=== PATIENT | male | born 1975 | race Two or more races ===

== ENCOUNTER 2022-09-23 14:27 | Inpatient (IN) | payer MEDICAID, OTHER ==
[~2022-09-23] VITALS: Ht 172.7 cm; Wt 80.0 kg
[2022-09-23] MEDS ORDERED: MORPHINE SULFATE 4 MG/ML SYR/VIAL IV ONE (15:45)
[2022-09-23] MEDS ORDERED: METOCLOPRAMIDE HCL 5MG/ml INJ 2ml VIAL IV ONE (15:45)
[2022-09-23] MEDS ORDERED: SODIUM CHLORIDE 0.9% 1,000 ML IV ONE (15:45)
[2022-09-23] MEDS ORDERED: SODIUM CHLORIDE 0.9% 500 ML IVB ONE (15:45)
[2022-09-23] MEDS ORDERED: VANCOMYCIN 1GM/250ML 250 ML IV ONE (15:45)
[2022-09-23 16:13] LABS: Basophils # (auto) 0.1 10 ^3/uL (0-0.2); Eosinophils # (auto) 0 10 ^3/uL (0-0.8); Hemoglobin 8.2 g/dL (13.5-17.5); Lymphocytes # (auto) 0.4 10 ^3/uL (0.4-5.4); Mean Corpuscular Volume 80.9 fL (80.0-100.0); Monocytes # (auto) 0.8 10 ^3/uL (0-1.3)
[2022-09-23 16:14] LABS: Basophils % (auto) 0.5 % (0.0-2.0); Eosinophils % (auto) 0.2 % (0.0-7.0); Hematocrit 25.1 % (41.0-53.0); Lymphocytes % (auto) 1.9 % (10.0-50.0); Mean Corpuscular Hemoglobin 26.5 pg (28.0-32.0); Mean Corpuscular Hgb Conc. 32.8 g/dL (32.0-36.0); Monocytes % (auto) 4.1 % (0.0-12.0); Neutrophils # (auto) 17.5 10 ^3/uL (1.6-8.6); Neutrophils % (auto) 93.3 % (37.0-80.0); Red Cell Distribution Width 13.8 % (11.8-14.3); White Blood Cell 18.8 10^3/uL (4.4-10.8)
[2022-09-23 16:30] LABS: Albumin 1.5 g/dL (3.4-5.0); Calcium 8.5 mg/dL (8.5-10.1)
[2022-09-23 16:32] LABS: INR 1.06 (0.9-1.15); Partial Thromboplastin Time 37.6 sec (24.6-33.4)
[2022-09-23 16:34] LABS: Bilirubin, Total 0.2 mg/dL (0.2-1.0); Total Protein 7.9 g/dL (6.4-8.2)
[2022-09-24] MEDS ORDERED: TEMAZEPAM 15 MG CAP PO PRN (01:45)
[2022-09-24] MEDS ORDERED: ONDANSETRON HCL 4 MG/2 ML VIAL IV PRN (01:45)
[2022-09-24] MEDS ORDERED: MORPHINE SULFATE INJ 2 MG/ml SYRG IV PRN (01:45)
[2022-09-24] MEDS ORDERED: MAALOX PLUS or MAALOX 30 ML PO PRN (01:45)
[2022-09-24] MEDS ORDERED: LORazepam 0.5 MG TAB PO PRN (01:45)
[2022-09-24] MEDS ORDERED: VANCOMYCIN PER PHARMACY 0 MG IV SCH (01:45)
[2022-09-24] MEDS ORDERED: ACETAMINOPHEN 325 MG TAB PO PRN (01:45)
[2022-09-24] MEDS ORDERED: DOCUSATE SOD 100 MG CAP PO PRN (01:45)
[2022-09-24] MEDS ORDERED: DEXTROSE (50%) 50ML SYRG IV PRN (01:45)
[2022-09-24] MEDS ORDERED: VANCOMYCIN 1GM/250ML 250 ML IV ONE (02:00)
[2022-09-24] MEDS: SODIUM CHLORIDE 0.9% 1,000 ML IV SCH (02:50)
[2022-09-24] MEDS: InsuLIN REG 1unit/0.01ml Soln (100units/ml) SC SCH ×6 (04:00→23:08)
[2022-09-24] MEDS: ACCU-CHEK COMFORT CURVE STRIP VI SCH ×6 (04:00→23:09)
[2022-09-24 05:58] LABS: Basophils # (auto) 0 10 ^3/uL (0-0.2); Basophils % (auto) 0.2 % (0.0-2.0); Eosinophils # (auto) 0 10 ^3/uL (0-0.8); Hematocrit 20.9 % (41.0-53.0); Mean Corpuscular Hemoglobin 26.5 pg (28.0-32.0); Mean Corpuscular Hgb Conc. 32.9 g/dL (32.0-36.0); Monocytes # (auto) 0.8 10 ^3/uL (0-1.3); Neutrophils % (auto) 89.1 % (37.0-80.0); Red Blood Cells 2.59 10^6/uL (4.5-5.90)
[2022-09-24 06:01] LABS: Eosinophils % (auto) 0.3 % (0.0-7.0); Lymphocytes # (auto) 0.7 10 ^3/uL (0.4-5.4); Lymphocytes % (auto) 4.7 % (10.0-50.0); Mean Corpuscular Volume 80.8 fL (80.0-100.0); Monocytes % (auto) 5.7 % (0.0-12.0); Neutrophils # (auto) 12.4 10 ^3/uL (1.6-8.6); Red Cell Distribution Width 13.9 % (11.8-14.3); White Blood Cell 13.9 10^3/uL (4.4-10.8)
[2022-09-24 06:24] LABS: Hemoglobin 6.9 g/dL (13.5-17.5)
[2022-09-24 06:30] LABS: BUN/Creatinine Ratio 13.7; Calcium 8.3 mg/dL (8.5-10.1); Potassium 3.7 mmol/L (3.5-5.1)
[2022-09-24] MEDS: PIPERACILLIN-TAZOB 3.375GM 100 ML IV SCH ×3 (07:00→18:14)
[2022-09-24 09:00] VITALS: BP 158/82
[2022-09-24] MEDS: METOPROLOL TARTRATE 25 MG TAB PO SCH ×2 (09:11→21:36)
[2022-09-24 13:00] VITALS: BP 146/81
[2022-09-24] MEDS: hydrALAZINE HCL 20 MG/ML VL IV SCH ×3 (13:24→23:13)
[2022-09-24 13:33] LABS: Basophils # (auto) 0 10 ^3/uL (0-0.2); Basophils % (auto) 0.3 % (0.0-2.0); Eosinophils # (auto) 0 10 ^3/uL (0-0.8); Eosinophils % (auto) 0.4 % (0.0-7.0); Hematocrit 20.6 % (41.0-53.0); Lymphocytes # (auto) 0.7 10 ^3/uL (0.4-5.4); Lymphocytes % (auto) 6.3 % (10.0-50.0); Mean Corpuscular Hemoglobin 27.2 pg (28.0-32.0); Mean Corpuscular Hgb Conc. 33.9 g/dL (32.0-36.0); Mean Corpuscular Volume 80.4 fL (80.0-100.0); Monocytes # (auto) 0.6 10 ^3/uL (0-1.3); Monocytes % (auto) 5.9 % (0.0-12.0); Neutrophils # (auto) 9.2 10 ^3/uL (1.6-8.6); Neutrophils % (auto) 87.1 % (37.0-80.0); Red Blood Cells 2.56 10^6/uL (4.5-5.90); Red Cell Distribution Width 13.6 % (11.8-14.3); White Blood Cell 10.5 10^3/uL (4.4-10.8)
[2022-09-24] MEDS: HYDROcodone-ACET 5/325MG TAB PO PRN (16:37)
[2022-09-24 17:03] VITALS: BP 129/75
[2022-09-24 22:00] VITALS: BP 135/76
[2022-09-25] MEDS: SODIUM CHLORIDE 0.9% 1,000 ML IV SCH ×2 (01:03→12:24)
[2022-09-25] MEDS: PIPERACILLIN-TAZOB 3.375GM 100 ML IV SCH ×2 (01:22→09:04)
[2022-09-25] MEDS: ACCU-CHEK COMFORT CURVE STRIP VI SCH ×5 (03:36→20:45)
[2022-09-25] MEDS: InsuLIN REG 1unit/0.01ml Soln (100units/ml) SC SCH ×5 (03:37→20:00)
[2022-09-25 04:30] VITALS: BP 134/72
[2022-09-25] MEDS: hydrALAZINE HCL 20 MG/ML VL IV SCH (05:38)
[2022-09-25 06:36] LABS: Urine Blood TRACE /uL (Negative); Urine Specific Gravity 1.013 (1.001-1.035)
[2022-09-25 09:00] VITALS: BP 164/92
[2022-09-25] MEDS: METOPROLOL TARTRATE 25 MG TAB PO SCH ×2 (09:05→22:37)
[2022-09-25 13:00] VITALS: BP 157/85
[2022-09-25] MEDS ORDERED: VANCOMYCIN 1GM/250ML 250 ML IV ONE (15:00)
[2022-09-25 17:00] VITALS: BP 154/87
[2022-09-25] MEDS: PIPERACILLIN-TAZOB 2.25GM 50 ML IV SCH (18:00)
[2022-09-25 22:00] VITALS: BP 146/79
[2022-09-26] MEDS: ACCU-CHEK COMFORT CURVE STRIP VI SCH ×6 (01:12→20:34)
[2022-09-26] MEDS: PIPERACILLIN-TAZOB 2.25GM 50 ML IV SCH ×3 (01:59→18:18)
[2022-09-26] MEDS: InsuLIN REG 1unit/0.01ml Soln (100units/ml) SC SCH ×6 (04:04→20:38)
[2022-09-26 05:00] VITALS: BP 141/95
[2022-09-26 09:00] VITALS: BP 160/88
[2022-09-26] MEDS: METOPROLOL TARTRATE 25 MG TAB PO SCH ×2 (11:03→21:56)
[2022-09-26 13:00] VITALS: BP 181/104
[2022-09-26] MEDS: hydrALAZINE HCL 20 MG/ML VL IV PRN (16:49)
[2022-09-26 17:00] VITALS: BP 163/90
[2022-09-26] MEDS: SODIUM CHLORIDE 0.9% 1,000 ML IV SCH ×2 (21:56→22:00)
[2022-09-26 22:00] VITALS: BP 167/95
[2022-09-27] MEDS: ACCU-CHEK COMFORT CURVE STRIP VI SCH ×6 (00:24→20:44)
[2022-09-27] MEDS: InsuLIN REG 1unit/0.01ml Soln (100units/ml) SC SCH ×6 (00:24→20:00)
[2022-09-27] MEDS: hydrALAZINE HCL 20 MG/ML VL IV PRN ×2 (00:25→22:01)
[2022-09-27] MEDS: PIPERACILLIN-TAZOB 2.25GM 50 ML IV SCH ×3 (02:04→18:00)
[2022-09-27 05:00] VITALS: BP 141/79
[2022-09-27 06:39] LABS: Basophils # (auto) 0 10 ^3/uL (0-0.2); Basophils % (auto) 0.4 % (0.0-2.0); Eosinophils # (auto) 0.1 10 ^3/uL (0-0.8); Eosinophils % (auto) 0.8 % (0.0-7.0); Hematocrit 19.5 % (41.0-53.0); Monocytes # (auto) 0.8 10 ^3/uL (0-1.3)
[2022-09-27 06:42] LABS: Lymphocytes % (auto) 10.8 % (10.0-50.0); Mean Corpuscular Hemoglobin 26.9 pg (28.0-32.0); Mean Corpuscular Hgb Conc. 33.1 g/dL (32.0-36.0); Mean Corpuscular Volume 81.3 fL (80.0-100.0); Monocytes % (auto) 8.9 % (0.0-12.0); Neutrophils # (auto) 7.2 10 ^3/uL (1.6-8.6); Neutrophils % (auto) 79.1 % (37.0-80.0); Nucleated Red Blood Cells % 0.1 %; White Blood Cell 9.1 10^3/uL (4.4-10.8)
[2022-09-27 07:01] LABS: Hemoglobin 6.5 g/dL (13.5-17.5)
[2022-09-27 09:00] VITALS: BP 155/89
[2022-09-27] MEDS: METOPROLOL TARTRATE 25 MG TAB PO SCH ×2 (10:37→22:00)
[2022-09-27] MEDS ORDERED: VANCOMYCIN 500 MG in D5W 5% 100 ML IV ONE ×2 (12:00→13:15)
[2022-09-27 13:00] VITALS: BP 159/90
[2022-09-27 17:00] VITALS: BP 148/87
[2022-09-27 22:00] VITALS: BP 174/92
[2022-09-28] MEDS: ACCU-CHEK COMFORT CURVE STRIP VI SCH ×6 (00:11→22:00)
[2022-09-28] MEDS: InsuLIN REG 1unit/0.01ml Soln (100units/ml) SC SCH ×6 (00:57→22:00)
[2022-09-28] MEDS: PIPERACILLIN-TAZOB 2.25GM 50 ML IV SCH ×2 (02:22→10:27)
[2022-09-28 05:00] VITALS: BP 136/70
[2022-09-28] MEDS: SODIUM CHLORIDE 0.9% 1,000 ML IV SCH ×2 (05:04→22:25)
[2022-09-28 09:00] VITALS: BP 153/85
[2022-09-28] MEDS: METOPROLOL TARTRATE 25 MG TAB PO SCH ×2 (10:27→23:46)
[2022-09-28 13:00] VITALS: BP 153/84
[2022-09-28] MEDS ORDERED: DEXTROSE (50%) 50ML SYRG IV PRN (15:30)
[2022-09-28 17:00] VITALS: BP 157/89
[2022-09-28] MEDS: CEFEPIME 2 GM in SODIUM CHL 0.9% 50 ML IV SCH (18:00)
[2022-09-28 22:00] VITALS: BP 176/95
[2022-09-28] MEDS: CLINDAMYCIN 300MG IV 50 ML IV SCH (23:46)
[2022-09-29 05:00] VITALS: BP_SYST 117; BP_SYST 163; BP_DIAS 70; BP_DIAS 89
[2022-09-29] MEDS: InsuLIN REG 1unit/0.01ml Soln (100units/ml) SC SCH ×4 (06:18→21:14)
[2022-09-29] MEDS: CLINDAMYCIN 300MG IV 50 ML IV SCH ×3 (06:25→21:33)
[2022-09-29] MEDS: ACCU-CHEK COMFORT CURVE STRIP VI SCH ×4 (06:25→21:33)
[2022-09-29 07:36] LABS: Basophils # (auto) 0.1 10 ^3/uL (0-0.2); Eosinophils # (auto) 0.1 10 ^3/uL (0-0.8); Mean Corpuscular Hemoglobin 27.5 pg (28.0-32.0); Mean Corpuscular Volume 81.9 fL (80.0-100.0); Monocytes # (auto) 0.7 10 ^3/uL (0-1.3)
[2022-09-29 07:38] LABS: Basophils % (auto) 0.6 % (0.0-2.0); Hematocrit 18.7 % (41.0-53.0); Lymphocytes % (auto) 12.6 % (10.0-50.0); Mean Corpuscular Hgb Conc. 33.6 g/dL (32.0-36.0); Monocytes % (auto) 8.6 % (0.0-12.0); Neutrophils % (auto) 77.2 % (37.0-80.0); Red Blood Cells 2.29 10^6/uL (4.5-5.90); Red Cell Distribution Width 14.2 % (11.8-14.3); White Blood Cell 7.8 10^3/uL (4.4-10.8)
[2022-09-29 07:43] LABS: Potassium 4.9 mmol/L (3.5-5.1)
[2022-09-29 07:47] LABS: Hemoglobin 6.3 g/dL (13.5-17.5)
[2022-09-29 07:53] LABS: BUN/Creatinine Ratio 12.9; Calcium 8.4 mg/dL (8.5-10.1)
[2022-09-29] MEDS: METOPROLOL TARTRATE 25 MG TAB PO SCH ×2 (08:05→21:22)
[2022-09-29 09:00] VITALS: BP_SYST 159; BP_SYST 163; BP_DIAS 83; BP_DIAS 86
[2022-09-29 13:00] VITALS: BP 159/83
[2022-09-29] MEDS: SODIUM FERR GLUC 62.5MG/5ML 125 MG in SODIUM CHL 0.9% 100 ML IV SCH (14:00)
[2022-09-29] MEDS: SODIUM CHLORIDE 0.9% 1,000 ML IV SCH (15:05)
[2022-09-29] MEDS: hydrALAZINE HCL 20 MG/ML VL IV PRN (16:33)
[2022-09-29 17:00] VITALS: BP_SYST 122; BP_SYST 174; BP_DIAS 76; BP_DIAS 94
[2022-09-29] MEDS: CEFEPIME 2 GM in SODIUM CHL 0.9% 50 ML IV SCH (17:49)
[2022-09-29] MEDS ORDERED: EPOETIN ALFA-EPBX 10,000 UNIT/1ML VIAL SC ONE (21:00)
[2022-09-29 21:25] LABS: Creatinine, Urine 56.7 mg/dL (30.0-125.0)
[2022-09-29 21:26] LABS: Protein, Urine 466.7 mg/dL (0.0-11.9)
[2022-09-29 22:00] VITALS: BP 178/98
[2022-09-30] VITALS (13 sets, daily range): BP systolic 157–186; BP diastolic 87–103
[2022-09-30] MEDS: CLINDAMYCIN 300MG IV 50 ML IV SCH ×3 (06:00→22:08)
[2022-09-30] MEDS: InsuLIN REG 1unit/0.01ml Soln (100units/ml) SC SCH ×4 (06:21→22:06)
[2022-09-30] MEDS: ACCU-CHEK COMFORT CURVE STRIP VI SCH ×4 (07:00→22:06)
[2022-09-30 07:32] LABS: Hematocrit 19.1 % (41.0-53.0)
[2022-09-30] MEDS: hydrALAZINE HCL 20 MG/ML VL IV PRN (07:34)
[2022-09-30 08:07] LABS: % Iron Saturation 54.3 % (20-55)
[2022-09-30 08:13] LABS: Hemoglobin 6.6 g/dL (13.5-17.5)
[2022-09-30] MEDS: METOPROLOL TARTRATE 25 MG TAB PO SCH (10:30)
[2022-09-30] MEDS ORDERED: SODIUM FERR GLUC 62.5MG/5ML 125 MG in SODIUM CHL 0.9% 100 ML IV SCH (12:00)
[2022-09-30] MEDS: SODIUM FERR GLUC 62.5MG/5ML 125 MG in SODIUM CHL 0.9% 100 ML IV SCH (14:07)
[2022-09-30] MEDS: hydrALAZINE HCL 25 MG TAB PO SCH ×2 (15:00→22:10)
[2022-09-30] MEDS: ERGOCALCIFEROL 50,000 UNIT(1.25MG) CAP PO SCH (15:48)
[2022-09-30] MEDS: LABETALOL HCL 5 MG/ML 4ML SYRINGE IV PRN ×3 (17:48→23:53)
[2022-09-30] MEDS: CALCIUM ACETATE 667 MG CAP PO SCH (17:48)
[2022-09-30] MEDS: CEFEPIME 2 GM in SODIUM CHL 0.9% 50 ML IV SCH (17:49)
[2022-09-30] MEDS: METOPROLOL TARTRATE 50 MG TAB PO SCH (22:09)
[2022-10-01] MEDS: LABETALOL HCL 5 MG/ML 4ML SYRINGE IV PRN ×3 (03:22→18:12)
[2022-10-01 05:00] VITALS: BP 167/92
[2022-10-01] MEDS: InsuLIN REG 1unit/0.01ml Soln (100units/ml) SC SCH ×4 (06:15→22:06)
[2022-10-01] MEDS: CLINDAMYCIN 300MG IV 50 ML IV SCH ×3 (06:16→22:05)
[2022-10-01] MEDS: ACCU-CHEK COMFORT CURVE STRIP VI SCH ×4 (06:24→22:06)
[2022-10-01 06:38] LABS: Basophils # (auto) 0.1 10 ^3/uL (0-0.2); Basophils % (auto) 0.8 % (0.0-2.0); Eosinophils # (auto) 0.1 10 ^3/uL (0-0.8); Hemoglobin 8.2 g/dL (13.5-17.5); Monocytes # (auto) 0.6 10 ^3/uL (0-1.3)
[2022-10-01 06:40] LABS: Eosinophils % (auto) 0.8 % (0.0-7.0); Lymphocytes # (auto) 0.9 10 ^3/uL (0.4-5.4); Lymphocytes % (auto) 13.3 % (10.0-50.0); Mean Corpuscular Hemoglobin 28.3 pg (28.0-32.0); Mean Corpuscular Hgb Conc. 34.3 g/dL (32.0-36.0); Mean Corpuscular Volume 82.7 fL (80.0-100.0); Monocytes % (auto) 9.1 % (0.0-12.0); Neutrophils # (auto) 5.1 10 ^3/uL (1.6-8.6); Nucleated Red Blood Cells % 0.1 %; White Blood Cell 6.8 10^3/uL (4.4-10.8)
[2022-10-01] MEDS: METOPROLOL TARTRATE 50 MG TAB PO SCH (08:10)
[2022-10-01] MEDS: CALCIUM ACETATE 667 MG CAP PO SCH ×3 (08:10→16:55)
[2022-10-01] MEDS: hydrALAZINE HCL 25 MG TAB PO SCH ×2 (08:11→22:05)
[2022-10-01 08:59] VITALS: BP 168/86
[2022-10-01 12:46] VITALS: BP 167/91
[2022-10-01] MEDS: NIFEdipine ER 30 MG TAB PO SCH (13:16)
[2022-10-01 17:00] VITALS: BP 175/91
[2022-10-01 22:00] VITALS: BP 126/72
[2022-10-01] MEDS: LABETALOL HCL 200 MG TAB PO SCH (22:06)
[2022-10-02 05:00] VITALS: BP 116/58
[2022-10-02] MEDS: CLINDAMYCIN 300MG IV 50 ML IV SCH ×3 (06:27→22:06)
[2022-10-02 06:29] LABS: Basophils # (auto) 0 10 ^3/uL (0-0.2); Basophils % (auto) 0.6 % (0.0-2.0); Hemoglobin 7.7 g/dL (13.5-17.5); Monocytes # (auto) 0.6 10 ^3/uL (0-1.3); Neutrophils # (auto) 5.4 10 ^3/uL (1.6-8.6); Red Blood Cells 2.71 10^6/uL (4.5-5.90); White Blood Cell 6.7 10^3/uL (4.4-10.8)
[2022-10-02 06:32] LABS: Eosinophils # (auto) 0 10 ^3/uL (0-0.8); Eosinophils % (auto) 0.7 % (0.0-7.0); Hematocrit 23.1 % (41.0-53.0); Lymphocytes # (auto) 0.6 10 ^3/uL (0.4-5.4); Mean Corpuscular Hemoglobin 28.3 pg (28.0-32.0); Mean Corpuscular Hgb Conc. 33.3 g/dL (32.0-36.0); Mean Corpuscular Volume 85.1 fL (80.0-100.0); Monocytes % (auto) 8.6 % (0.0-12.0); Neutrophils % (auto) 81.1 % (37.0-80.0); Red Cell Distribution Width 14.9 % (11.8-14.3)
[2022-10-02] MEDS: ACCU-CHEK COMFORT CURVE STRIP VI SCH ×4 (06:42→21:51)
[2022-10-02 06:43] LABS: BUN/Creatinine Ratio 14.6; Calcium 7.8 mg/dL (8.5-10.1); Potassium 4.9 mmol/L (3.5-5.1)
[2022-10-02] MEDS: InsuLIN REG 1unit/0.01ml Soln (100units/ml) SC SCH ×4 (06:46→21:58)
[2022-10-02 08:00] VITALS: BP 127/72
[2022-10-02] MEDS: CALCIUM ACETATE 667 MG CAP PO SCH ×3 (08:00→17:48)
[2022-10-02] MEDS: NIFEdipine ER 30 MG TAB PO SCH (10:00)
[2022-10-02] MEDS ORDERED: LIDOCAINE 1%-Mpf/Epinephrine 1:200,000 ONE (10:00)
[2022-10-02] MEDS: hydrALAZINE HCL 25 MG TAB PO SCH ×2 (10:00→22:05)
[2022-10-02] MEDS: LABETALOL HCL 200 MG TAB PO SCH ×2 (10:00→22:05)
[2022-10-02] MEDS ORDERED: BUPIVACAINE 0.25% INJ 50ML VIAL ONE (10:01)
[2022-10-02] MEDS ORDERED: fentaNYL CITRATE 100 MCG/2 ML VL ONE (10:58)
[2022-10-02] MEDS ORDERED: MIDAZOLAM HCL 2MG/2ML 2ml VIAL (1mg/ml) ONE (10:58)
[2022-10-02] MEDS ORDERED: PROPOFOL 10 MG/ML 20 ML IV ONE (11:40)
[2022-10-02] MEDS ORDERED: ONDANSETRON HCL 4 MG/2 ML VIAL ONE (11:40)
[2022-10-02 16:00] VITALS: BP 127/70
[2022-10-02 22:00] VITALS: BP 167/87
[2022-10-03] MEDS: LABETALOL HCL 5 MG/ML 4ML SYRINGE IV PRN ×2 (04:43→15:12)
[2022-10-03 04:53] VITALS: BP 166/84
[2022-10-03] MEDS: CLINDAMYCIN 300MG IV 50 ML IV SCH ×3 (06:29→22:00)
[2022-10-03] MEDS: ACCU-CHEK COMFORT CURVE STRIP VI SCH ×4 (06:46→22:20)
[2022-10-03] MEDS: InsuLIN REG 1unit/0.01ml Soln (100units/ml) SC SCH ×4 (06:47→22:23)
[2022-10-03 08:00] VITALS: BP 158/80
[2022-10-03] MEDS: NIFEdipine ER 30 MG TAB PO SCH (10:22)
[2022-10-03] MEDS: CALCIUM ACETATE 667 MG CAP PO SCH ×3 (10:22→18:18)
[2022-10-03] MEDS: LABETALOL HCL 200 MG TAB PO SCH ×2 (10:23→22:14)
[2022-10-03] MEDS: hydrALAZINE HCL 25 MG TAB PO SCH ×2 (10:23→22:13)
[2022-10-03 12:00] VITALS: BP 155/76
[2022-10-03 20:00] VITALS: BP 133/67
[2022-10-03] MEDS: SODIUM BICARBONATE 650 MG TAB PO SCH (22:13)
[2022-10-03 22:21] VITALS: BP 133/67
[2022-10-04 05:45] VITALS: BP 93/45
[2022-10-04 05:58] LABS: Basophils # (auto) 0 10 ^3/uL (0-0.2); Basophils % (auto) 0.4 % (0.0-2.0); Eosinophils # (auto) 0.1 10 ^3/uL (0-0.8); Lymphocytes # (auto) 0.7 10 ^3/uL (0.4-5.4); Monocytes # (auto) 0.9 10 ^3/uL (0-1.3); Neutrophils # (auto) 7.1 10 ^3/uL (1.6-8.6); Nucleated Red Blood Cells % 0.1 %; Red Blood Cells 2.35 10^6/uL (4.5-5.90); Red Cell Distribution Width 15.1 % (11.8-14.3); White Blood Cell 8.8 10^3/uL (4.4-10.8)
[2022-10-04 06:00] LABS: Eosinophils % (auto) 0.9 % (0.0-7.0); Hematocrit 19.9 % (41.0-53.0); Lymphocytes % (auto) 7.7 % (10.0-50.0); Mean Corpuscular Hemoglobin 28.5 pg (28.0-32.0); Mean Corpuscular Hgb Conc. 33.7 g/dL (32.0-36.0); Mean Corpuscular Volume 84.6 fL (80.0-100.0); Monocytes % (auto) 10.6 % (0.0-12.0); Neutrophils % (auto) 80.4 % (37.0-80.0)
[2022-10-04 06:05] LABS: Hemoglobin 6.7 g/dL (13.5-17.5)
[2022-10-04 06:07] LABS: Albumin 1.5 g/dL (3.4-5.0); BUN/Creatinine Ratio 15.3; Calcium 8.7 mg/dL (8.5-10.1); Potassium 5.1 mmol/L (3.5-5.1)
[2022-10-04] MEDS: ACCU-CHEK COMFORT CURVE STRIP VI SCH ×4 (06:07→22:15)
[2022-10-04 06:10] LABS: Bilirubin, Total 0.3 mg/dL (0.2-1.0); Total Protein 6.5 g/dL (6.4-8.2)
[2022-10-04] MEDS: SODIUM BICARBONATE 650 MG TAB PO SCH ×3 (06:11→22:39)
[2022-10-04] MEDS: CLINDAMYCIN 300MG IV 50 ML IV SCH ×3 (06:21→23:02)
[2022-10-04] MEDS: InsuLIN REG 1unit/0.01ml Soln (100units/ml) SC SCH ×4 (06:22→22:24)
[2022-10-04] MEDS: CALCIUM ACETATE 667 MG CAP PO SCH ×3 (08:00→18:20)
[2022-10-04 09:15] VITALS: BP 114/65
[2022-10-04] MEDS: LABETALOL HCL 200 MG TAB PO SCH ×2 (10:00→22:14)
[2022-10-04] MEDS: NIFEdipine ER 30 MG TAB PO SCH (10:00)
[2022-10-04] MEDS: hydrALAZINE HCL 25 MG TAB PO SCH ×2 (10:00→22:14)
[2022-10-04 12:54] VITALS: BP 127/67
[2022-10-04 15:39] LABS: Basophils # (auto) 0 10 ^3/uL (0-0.2); Basophils % (auto) 0.4 % (0.0-2.0); Eosinophils # (auto) 0.1 10 ^3/uL (0-0.8); Eosinophils % (auto) 1.2 % (0.0-7.0); Hematocrit 20.9 % (41.0-53.0); Hemoglobin 7.1 g/dL (13.5-17.5); Lymphocytes # (auto) 0.7 10 ^3/uL (0.4-5.4); Lymphocytes % (auto) 8.2 % (10.0-50.0); Mean Corpuscular Hemoglobin 28.4 pg (28.0-32.0); Mean Corpuscular Hgb Conc. 33.7 g/dL (32.0-36.0); Mean Corpuscular Volume 84.3 fL (80.0-100.0); Monocytes # (auto) 0.8 10 ^3/uL (0-1.3); Monocytes % (auto) 10.2 % (0.0-12.0); Neutrophils # (auto) 6.5 10 ^3/uL (1.6-8.6); Red Blood Cells 2.48 10^6/uL (4.5-5.90); Red Cell Distribution Width 15.2 % (11.8-14.3); White Blood Cell 8.1 10^3/uL (4.4-10.8)
[2022-10-04 17:12] VITALS: BP 163/79
[2022-10-04] MEDS ORDERED: EPOETIN ALFA-EPBX 10,000 UNIT/1ML VIAL SC ONE (21:00)
[2022-10-04] MEDS ORDERED: CLINDAMYCIN 300MG IV 100 ML IV ONE (22:52)
[2022-10-04 23:27] VITALS: BP 103/43
[2022-10-05 05:16] VITALS: BP 109/53
[2022-10-05] MEDS: CLINDAMYCIN 300MG IV 50 ML IV SCH ×3 (06:14→22:00)
[2022-10-05] MEDS: SODIUM BICARBONATE 650 MG TAB PO SCH ×3 (06:14→21:45)
[2022-10-05] MEDS: ACCU-CHEK COMFORT CURVE STRIP VI SCH ×4 (06:38→22:00)
[2022-10-05] MEDS: InsuLIN REG 1unit/0.01ml Soln (100units/ml) SC SCH ×4 (06:38→22:30)
[2022-10-05 07:20] LABS: Basophils # (auto) 0.1 10 ^3/uL (0-0.2); Basophils % (auto) 0.9 % (0.0-2.0); Eosinophils # (auto) 0.1 10 ^3/uL (0-0.8); Lymphocytes # (auto) 0.8 10 ^3/uL (0.4-5.4); Mean Corpuscular Volume 84.5 fL (80.0-100.0); White Blood Cell 6.7 10^3/uL (4.4-10.8)
[2022-10-05 07:23] LABS: Eosinophils % (auto) 2.2 % (0.0-7.0); Hematocrit 20.1 % (41.0-53.0); Mean Corpuscular Hemoglobin 29.4 pg (28.0-32.0); Mean Corpuscular Hgb Conc. 34.8 g/dL (32.0-36.0); Monocytes # (auto) 0.7 10 ^3/uL (0-1.3); Monocytes % (auto) 10.2 % (0.0-12.0); Neutrophils % (auto) 74.7 % (37.0-80.0); Red Blood Cells 2.38 10^6/uL (4.5-5.90)
[2022-10-05 07:39] LABS: Potassium 4.9 mmol/L (3.5-5.1)
[2022-10-05 07:43] LABS: Albumin 1.6 g/dL (3.4-5.0); BUN/Creatinine Ratio 15.1; Calcium 8.6 mg/dL (8.5-10.1)
[2022-10-05 07:46] LABS: Bilirubin, Total 0.4 mg/dL (0.2-1.0)
[2022-10-05] MEDS: CALCIUM ACETATE 667 MG CAP PO SCH ×3 (08:35→17:57)
[2022-10-05 08:50] VITALS: BP 121/63
[2022-10-05] MEDS: LABETALOL HCL 200 MG TAB PO SCH ×2 (09:27→21:47)
[2022-10-05] MEDS: hydrALAZINE HCL 25 MG TAB PO SCH ×2 (09:27→21:46)
[2022-10-05] MEDS: NIFEdipine ER 30 MG TAB PO SCH (09:28)
[2022-10-05 12:59] VITALS: BP 137/70
[2022-10-05] MEDS ORDERED: FUROSEMIDE 100 MG/10ML VIAL IV ONE (14:30)
[2022-10-05 16:50] VITALS: BP 125/71
[2022-10-05 20:00] VITALS: BP 146/80
[2022-10-05] MEDS: CLINDAMYCIN 600MG IV 50 ML IV SCH (21:45)
[2022-10-05 22:00] VITALS: BP 134/70
[2022-10-05] MEDS: DAKINS HALF STR 0.25% (NaHypochlorite) 473 ML TOPICAL SOL TOP SCH (22:00)
[2022-10-05] MEDS ORDERED: InsuLIN REG 1unit/0.01ml Soln (100units/ml) ONE (22:48)
[2022-10-06 05:00] VITALS: BP 129/72
[2022-10-06 05:59] LABS: Mean Corpuscular Hemoglobin 28.5 pg (28.0-32.0); Monocytes # (auto) 0.6 10 ^3/uL (0-1.3); Neutrophils # (auto) 4.4 10 ^3/uL (1.6-8.6); Red Cell Distribution Width 15.7 % (11.8-14.3)
[2022-10-06] MEDS: CLINDAMYCIN 300MG IV 50 ML IV SCH (06:00)
[2022-10-06] MEDS: SODIUM BICARBONATE 650 MG TAB PO SCH ×3 (06:00→21:54)
[2022-10-06 06:01] LABS: Basophils # (auto) 0 10 ^3/uL (0-0.2); Basophils % (auto) 0.7 % (0.0-2.0); Eosinophils # (auto) 0.2 10 ^3/uL (0-0.8); Eosinophils % (auto) 2.7 % (0.0-7.0); Hematocrit 19.4 % (41.0-53.0); Lymphocytes # (auto) 0.7 10 ^3/uL (0.4-5.4); Lymphocytes % (auto) 12.6 % (10.0-50.0); Mean Corpuscular Hgb Conc. 33.9 g/dL (32.0-36.0); Mean Corpuscular Volume 84.1 fL (80.0-100.0); Monocytes % (auto) 9.4 % (0.0-12.0); Neutrophils % (auto) 74.6 % (37.0-80.0); Red Blood Cells 2.31 10^6/uL (4.5-5.90); White Blood Cell 5.9 10^3/uL (4.4-10.8)
[2022-10-06 06:12] LABS: INR 1.11 (0.9-1.15); Partial Thromboplastin Time 38.3 sec (24.6-33.4)
[2022-10-06 06:16] LABS: Albumin 1.8 g/dL (3.4-5.0); Calcium 8.3 mg/dL (8.5-10.1)
[2022-10-06 06:22] LABS: BUN/Creatinine Ratio 14.5; Bilirubin, Total 0.4 mg/dL (0.2-1.0); Total Protein 6.9 g/dL (6.4-8.2)
[2022-10-06 06:39] LABS: Hemoglobin 6.6 g/dL (13.5-17.5)
[2022-10-06] MEDS: InsuLIN REG 1unit/0.01ml Soln (100units/ml) SC SCH ×4 (06:55→22:27)
[2022-10-06] MEDS: ACCU-CHEK COMFORT CURVE STRIP VI SCH ×4 (07:00→22:27)
[2022-10-06] MEDS: CALCIUM ACETATE 667 MG CAP PO SCH ×3 (08:27→18:14)
[2022-10-06] MEDS ORDERED: IODIXANOL 320MG/ML 100ML BTL IV ONE (08:36)
[2022-10-06] MEDS ORDERED: LIDOCAINE 2%HCL (LOCAL ANESTH.) INJ 20ML MDV ONE (08:37)
[2022-10-06] MEDS ORDERED: HEPARIN IN NS 1000Units/500mL 0 ML ONE (08:37)
[2022-10-06 09:00] VITALS: BP 110/51
[2022-10-06] MEDS: hydrALAZINE HCL 25 MG TAB PO SCH ×2 (10:00→21:57)
[2022-10-06] MEDS: LABETALOL HCL 200 MG TAB PO SCH ×2 (10:00→21:56)
[2022-10-06] MEDS: FUROSEMIDE 100 MG/10ML VIAL IV SCH (10:00)
[2022-10-06] MEDS: NIFEdipine ER 30 MG TAB PO SCH (10:00)
[2022-10-06] MEDS: CLINDAMYCIN 600MG IV 50 ML IV SCH ×2 (12:56→21:54)
[2022-10-06] MEDS: DAKINS HALF STR 0.25% (NaHypochlorite) 473 ML TOPICAL SOL TOP SCH ×2 (12:57→22:27)
[2022-10-06 13:00] VITALS: BP 115/76
[2022-10-06 16:22] VITALS: BP 161/77
[2022-10-06 22:00] VITALS: BP 168/74
[2022-10-07] VITALS (12 sets, daily range): BP systolic 168–207; BP diastolic 80–111
[2022-10-07] MEDS: InsuLIN REG 1unit/0.01ml Soln (100units/ml) SC SCH ×4 (06:13→22:00)
[2022-10-07] MEDS: ACCU-CHEK COMFORT CURVE STRIP VI SCH ×4 (06:14→22:00)
[2022-10-07 06:26] LABS: Eosinophils # (auto) 0.2 10 ^3/uL (0-0.8); Mean Corpuscular Volume 83.2 fL (80.0-100.0); Monocytes # (auto) 0.8 10 ^3/uL (0-1.3); White Blood Cell 7.9 10^3/uL (4.4-10.8)
[2022-10-07 06:30] LABS: Basophils # (auto) 0 10 ^3/uL (0-0.2); Basophils % (auto) 0.6 % (0.0-2.0); Eosinophils % (auto) 2.3 % (0.0-7.0); Lymphocytes # (auto) 0.7 10 ^3/uL (0.4-5.4); Lymphocytes % (auto) 8.9 % (10.0-50.0); Mean Corpuscular Hemoglobin 28.5 pg (28.0-32.0); Mean Corpuscular Hgb Conc. 34.2 g/dL (32.0-36.0); Monocytes % (auto) 9.6 % (0.0-12.0); Neutrophils # (auto) 6.2 10 ^3/uL (1.6-8.6); Neutrophils % (auto) 78.6 % (37.0-80.0); Nucleated Red Blood Cells % 0.1 %; Red Blood Cells 2.41 10^6/uL (4.5-5.90); Red Cell Distribution Width 15.9 % (11.8-14.3)
[2022-10-07 06:36] LABS: Hemoglobin 6.9 g/dL (13.5-17.5)
[2022-10-07 06:43] LABS: Albumin 1.8 g/dL (3.4-5.0); Potassium 5.1 mmol/L (3.5-5.1)
[2022-10-07 06:47] LABS: BUN/Creatinine Ratio 15.4; Bilirubin, Total 0.3 mg/dL (0.2-1.0); Total Protein 6.4 g/dL (6.4-8.2)
[2022-10-07] MEDS ORDERED: SODIUM CHL 0.9% 1000 ML BAG XX ONE (07:00)
[2022-10-07] MEDS: FUROSEMIDE 100 MG/10ML VIAL IV SCH (08:10)
[2022-10-07] MEDS: hydrALAZINE HCL 25 MG TAB PO SCH ×2 (08:10→21:55)
[2022-10-07] MEDS: LABETALOL HCL 200 MG TAB PO SCH ×2 (10:00→21:55)
[2022-10-07] MEDS: DAKINS HALF STR 0.25% (NaHypochlorite) 473 ML TOPICAL SOL TOP SCH ×3 (10:00→22:00)
[2022-10-07] MEDS: NIFEdipine ER 30 MG TAB PO SCH (10:00)
[2022-10-07] MEDS: CLINDAMYCIN 600MG IV 50 ML IV SCH ×2 (10:00→21:55)
[2022-10-07] MEDS: CALCIUM ACETATE 667 MG CAP PO SCH ×2 (12:00→18:29)
[2022-10-07] MEDS ORDERED: IODIXANOL 320MG/ML 100ML BTL IV ONE (13:57)
[2022-10-07] MEDS ORDERED: LIDOCAINE 2%HCL (LOCAL ANESTH.) INJ 20ML MDV ONE (13:57)
[2022-10-07] MEDS ORDERED: fentaNYL CITRATE 100 MCG/2 ML VL ONE (13:59)
[2022-10-07] MEDS ORDERED: MIDAZOLAM HCL 2MG/2ML 2ml VIAL (1mg/ml) ONE (13:59)
[2022-10-07] MEDS ORDERED: HEPARIN SODIUM (PORCINE) 5000 UNITS/ML 1ML VIAL ONE (13:59)
[2022-10-07] MEDS: SODIUM BICARBONATE 650 MG TAB PO SCH ×3 (14:00→21:55)
[2022-10-07] MEDS: ERGOCALCIFEROL 50,000 UNIT(1.25MG) CAP PO SCH (18:29)
[2022-10-07] MEDS ORDERED: EPOETIN ALFA-EPBX 10,000 UNIT/1ML VIAL SC ONE (21:00)
[2022-10-08] VITALS (7 sets, daily range): BP systolic 137–187; BP diastolic 74–98
[2022-10-08] MEDS: LABETALOL HCL 5 MG/ML 4ML SYRINGE IV PRN ×2 (00:53→06:37)
[2022-10-08 06:13] LABS: Basophils # (auto) 0 10 ^3/uL (0-0.2); Basophils % (auto) 0.8 % (0.0-2.0); Eosinophils # (auto) 0.1 10 ^3/uL (0-0.8); Eosinophils % (auto) 2.4 % (0.0-7.0); Hematocrit 24.1 % (41.0-53.0); Hemoglobin 8.2 g/dL (13.5-17.5); Lymphocytes # (auto) 0.5 10 ^3/uL (0.4-5.4); Lymphocytes % (auto) 8.8 % (10.0-50.0); Mean Corpuscular Hemoglobin 28.4 pg (28.0-32.0); Mean Corpuscular Hgb Conc. 34.1 g/dL (32.0-36.0); Mean Corpuscular Volume 83.2 fL (80.0-100.0); Monocytes # (auto) 0.6 10 ^3/uL (0-1.3); Neutrophils # (auto) 4.8 10 ^3/uL (1.6-8.6); Red Blood Cells 2.89 10^6/uL (4.5-5.90); Red Cell Distribution Width 16.1 % (11.8-14.3); White Blood Cell 6.1 10^3/uL (4.4-10.8)
[2022-10-08 06:14] LABS: Albumin 1.9 g/dL (3.4-5.0); Calcium 8.1 mg/dL (8.5-10.1); Potassium 3.9 mmol/L (3.5-5.1)
[2022-10-08 06:17] LABS: BUN/Creatinine Ratio 14.8; Bilirubin, Total 0.6 mg/dL (0.2-1.0); Total Protein 6.8 g/dL (6.4-8.2)
[2022-10-08] MEDS: ACCU-CHEK COMFORT CURVE STRIP VI SCH ×4 (06:28→21:43)
[2022-10-08] MEDS: InsuLIN REG 1unit/0.01ml Soln (100units/ml) SC SCH ×4 (06:30→21:42)
[2022-10-08] MEDS: SODIUM BICARBONATE 650 MG TAB PO SCH ×3 (06:37→21:40)
[2022-10-08] MEDS: CALCIUM ACETATE 667 MG CAP PO SCH ×3 (08:00→18:32)
[2022-10-08] MEDS: hydrALAZINE HCL 25 MG TAB PO SCH ×2 (09:15→21:41)
[2022-10-08] MEDS: LABETALOL HCL 200 MG TAB PO SCH ×2 (09:16→21:40)
[2022-10-08] MEDS: CLINDAMYCIN 600MG IV 50 ML IV SCH ×2 (09:17→21:39)
[2022-10-08] MEDS: FUROSEMIDE 100 MG/10ML VIAL IV SCH (09:18)
[2022-10-08] MEDS: NIFEdipine ER 30 MG TAB PO SCH (09:36)
[2022-10-08] MEDS: DAKINS HALF STR 0.25% (NaHypochlorite) 473 ML TOPICAL SOL TOP SCH ×2 (10:00→21:43)
[2022-10-08 13:45] LABS: Hepatitis A Ab IgM Negative
[2022-10-08 13:46] LABS: Hepatitis B Core IgM Negative
[2022-10-08 13:47] LABS: Hepatitis C Antibody Negative (Negative)
[2022-10-08] MEDS: HYDROcodone-ACET 5/325MG TAB PO PRN (21:40)
[2022-10-09] VITALS (7 sets, daily range): BP systolic 138–156; BP diastolic 74–84
[2022-10-09] MEDS: SODIUM BICARBONATE 650 MG TAB PO SCH ×3 (05:20→22:21)
[2022-10-09 05:47] LABS: Basophils # (auto) 0 10 ^3/uL (0-0.2); Eosinophils # (auto) 0.2 10 ^3/uL (0-0.8); Lymphocytes # (auto) 0.9 10 ^3/uL (0.4-5.4); Neutrophils # (auto) 3.9 10 ^3/uL (1.6-8.6)
[2022-10-09 05:49] LABS: Basophils % (auto) 0.7 % (0.0-2.0); Eosinophils % (auto) 4.1 % (0.0-7.0); Hematocrit 23.5 % (41.0-53.0); Hemoglobin 7.8 g/dL (13.5-17.5); Lymphocytes % (auto) 16.1 % (10.0-50.0); Mean Corpuscular Hemoglobin 27.9 pg (28.0-32.0); Mean Corpuscular Hgb Conc. 33.4 g/dL (32.0-36.0); Mean Corpuscular Volume 83.7 fL (80.0-100.0); Monocytes # (auto) 0.7 10 ^3/uL (0-1.3); Monocytes % (auto) 11.5 % (0.0-12.0); Neutrophils % (auto) 67.6 % (37.0-80.0); Red Cell Distribution Width 15.9 % (11.8-14.3); White Blood Cell 5.8 10^3/uL (4.4-10.8)
[2022-10-09 05:55] LABS: Albumin 1.9 g/dL (3.4-5.0); Potassium 4.1 mmol/L (3.5-5.1)
[2022-10-09 06:00] LABS: BUN/Creatinine Ratio 15.1; Bilirubin, Total 0.5 mg/dL (0.2-1.0); Total Protein 6.6 g/dL (6.4-8.2)
[2022-10-09] MEDS ORDERED: SODIUM CHL 0.9% 1000 ML BAG XX ONE (07:00)
[2022-10-09] MEDS: InsuLIN REG 1unit/0.01ml Soln (100units/ml) SC SCH ×4 (07:00→22:25)
[2022-10-09] MEDS: ACCU-CHEK COMFORT CURVE STRIP VI SCH ×4 (07:01→22:25)
[2022-10-09] MEDS: CALCIUM ACETATE 667 MG CAP PO SCH ×3 (08:36→18:06)
[2022-10-09] MEDS: FUROSEMIDE 100 MG/10ML VIAL IV SCH (10:06)
[2022-10-09] MEDS: LABETALOL HCL 200 MG TAB PO SCH ×2 (10:07→22:20)
[2022-10-09] MEDS: NIFEdipine ER 30 MG TAB PO SCH (10:08)
[2022-10-09] MEDS: hydrALAZINE HCL 25 MG TAB PO SCH ×2 (10:08→22:21)
[2022-10-09] MEDS: CLINDAMYCIN 600MG IV 50 ML IV SCH ×2 (10:09→22:20)
[2022-10-09] MEDS: DAKINS HALF STR 0.25% (NaHypochlorite) 473 ML TOPICAL SOL TOP SCH ×2 (11:31→22:23)
[2022-10-09] MEDS ORDERED: EPOETIN ALFA-EPBX 10,000 UNIT/1ML VIAL SC ONE (21:00)
[2022-10-10] VITALS (7 sets, daily range): BP systolic 106–165; BP diastolic 74–86
[2022-10-10 05:46] LABS: Basophils # (auto) 0.1 10 ^3/uL (0-0.2); Basophils % (auto) 1.1 % (0.0-2.0); Neutrophils # (auto) 3.6 10 ^3/uL (1.6-8.6); White Blood Cell 5.3 10^3/uL (4.4-10.8)
[2022-10-10 05:50] LABS: Eosinophils # (auto) 0.2 10 ^3/uL (0-0.8); Eosinophils % (auto) 4.2 % (0.0-7.0); Hematocrit 23.2 % (41.0-53.0); Lymphocytes # (auto) 0.8 10 ^3/uL (0.4-5.4); Mean Corpuscular Hemoglobin 28.7 pg (28.0-32.0); Mean Corpuscular Hgb Conc. 34.3 g/dL (32.0-36.0); Mean Corpuscular Volume 83.7 fL (80.0-100.0); Monocytes # (auto) 0.6 10 ^3/uL (0-1.3); Monocytes % (auto) 11.3 % (0.0-12.0); Neutrophils % (auto) 68.4 % (37.0-80.0); Red Blood Cells 2.78 10^6/uL (4.5-5.90); Red Cell Distribution Width 16.2 % (11.8-14.3)
[2022-10-10 06:11] LABS: Albumin 2.1 g/dL (3.4-5.0); Calcium 8.2 mg/dL (8.5-10.1); Potassium 4.7 mmol/L (3.5-5.1)
[2022-10-10 06:17] LABS: BUN/Creatinine Ratio 13.5; Bilirubin, Total 0.5 mg/dL (0.2-1.0); Total Protein 6.9 g/dL (6.4-8.2)
[2022-10-10] MEDS: SODIUM BICARBONATE 650 MG TAB PO SCH ×3 (06:49→22:00)
[2022-10-10] MEDS: ACCU-CHEK COMFORT CURVE STRIP VI SCH ×4 (06:49→22:00)
[2022-10-10] MEDS: InsuLIN REG 1unit/0.01ml Soln (100units/ml) SC SCH ×4 (06:49→22:00)
[2022-10-10] MEDS: CALCIUM ACETATE 667 MG CAP PO SCH ×3 (07:54→17:42)
[2022-10-10] MEDS: FUROSEMIDE 100 MG/10ML VIAL IV SCH (09:20)
[2022-10-10] MEDS: NIFEdipine ER 30 MG TAB PO SCH (09:21)
[2022-10-10] MEDS: CLINDAMYCIN 600MG IV 50 ML IV SCH ×2 (09:21→22:23)
[2022-10-10] MEDS: LABETALOL HCL 200 MG TAB PO SCH ×2 (09:22→22:23)
[2022-10-10] MEDS: hydrALAZINE HCL 25 MG TAB PO SCH ×2 (09:22→22:24)
[2022-10-10] MEDS: DAKINS HALF STR 0.25% (NaHypochlorite) 473 ML TOPICAL SOL TOP SCH ×2 (12:08→22:00)
[2022-10-10] MEDS: LABETALOL HCL 5 MG/ML 4ML SYRINGE IV PRN (12:52)
[2022-10-11 05:00] VITALS: BP 173/85
[2022-10-11] MEDS: SODIUM BICARBONATE 650 MG TAB PO SCH ×3 (05:18→22:01)
[2022-10-11] MEDS: LABETALOL HCL 5 MG/ML 4ML SYRINGE IV PRN ×2 (05:20→08:31)
[2022-10-11 05:42] LABS: Basophils # (auto) 0.1 10 ^3/uL (0-0.2); Eosinophils # (auto) 0.2 10 ^3/uL (0-0.8); Monocytes # (auto) 0.5 10 ^3/uL (0-1.3); Monocytes % (auto) 8.5 % (0.0-12.0); Nucleated Red Blood Cells % 0.1 %
[2022-10-11 05:44] LABS: Basophils % (auto) 1.1 % (0.0-2.0); Eosinophils % (auto) 3.6 % (0.0-7.0); Hematocrit 24.7 % (41.0-53.0); Hemoglobin 8.3 g/dL (13.5-17.5); Lymphocytes # (auto) 0.7 10 ^3/uL (0.4-5.4); Lymphocytes % (auto) 10.8 % (10.0-50.0); Mean Corpuscular Hemoglobin 28.2 pg (28.0-32.0); Mean Corpuscular Hgb Conc. 33.5 g/dL (32.0-36.0); Mean Corpuscular Volume 84.1 fL (80.0-100.0); Neutrophils # (auto) 4.8 10 ^3/uL (1.6-8.6); Red Blood Cells 2.93 10^6/uL (4.5-5.90); Red Cell Distribution Width 16.3 % (11.8-14.3); White Blood Cell 6.3 10^3/uL (4.4-10.8)
[2022-10-11 06:14] LABS: Albumin 2.1 g/dL (3.4-5.0); Calcium 8.2 mg/dL (8.5-10.1); Potassium 4.9 mmol/L (3.5-5.1)
[2022-10-11] MEDS: InsuLIN REG 1unit/0.01ml Soln (100units/ml) SC SCH ×4 (06:16→22:00)
[2022-10-11] MEDS: ACCU-CHEK COMFORT CURVE STRIP VI SCH ×4 (06:16→22:04)
[2022-10-11 06:17] LABS: BUN/Creatinine Ratio 14.9; Bilirubin, Total 0.4 mg/dL (0.2-1.0); Total Protein 6.8 g/dL (6.4-8.2)
[2022-10-11] MEDS: CALCIUM ACETATE 667 MG CAP PO SCH ×3 (07:51→18:16)
[2022-10-11 08:00] VITALS: BP 176/82
[2022-10-11 09:09] VITALS: BP 176/82
[2022-10-11] MEDS: NIFEdipine ER 30 MG TAB PO SCH (09:47)
[2022-10-11] MEDS: FUROSEMIDE 100 MG/10ML VIAL IV SCH (09:47)
[2022-10-11] MEDS: hydrALAZINE HCL 25 MG TAB PO SCH ×3 (09:47→22:03)
[2022-10-11] MEDS: LABETALOL HCL 200 MG TAB PO SCH ×2 (09:48→22:04)
[2022-10-11] MEDS: CLINDAMYCIN 600MG IV 50 ML IV SCH ×2 (09:48→21:58)
[2022-10-11] MEDS: DAKINS HALF STR 0.25% (NaHypochlorite) 473 ML TOPICAL SOL TOP SCH ×2 (10:14→22:04)
[2022-10-11 14:40] VITALS: BP 177/89
[2022-10-11 22:00] VITALS: BP 135/78
[2022-10-12 04:51] VITALS: BP 147/78
[2022-10-12 05:37] LABS: Basophils # (auto) 0.1 10 ^3/uL (0-0.2); Eosinophils # (auto) 0.2 10 ^3/uL (0-0.8); Hemoglobin 7.8 g/dL (13.5-17.5); Lymphocytes # (auto) 0.8 10 ^3/uL (0.4-5.4); Mean Corpuscular Hgb Conc. 33.9 g/dL (32.0-36.0); Monocytes # (auto) 0.5 10 ^3/uL (0-1.3); Red Blood Cells 2.74 10^6/uL (4.5-5.90)
[2022-10-12 05:44] LABS: Eosinophils % (auto) 3.4 % (0.0-7.0); Lymphocytes % (auto) 14.5 % (10.0-50.0); Mean Corpuscular Hemoglobin 28.3 pg (28.0-32.0); Mean Corpuscular Volume 83.7 fL (80.0-100.0); Monocytes % (auto) 8.5 % (0.0-12.0); Neutrophils # (auto) 4.1 10 ^3/uL (1.6-8.6); Neutrophils % (auto) 72.6 % (37.0-80.0); Nucleated Red Blood Cells % 0.1 %; Red Cell Distribution Width 16.2 % (11.8-14.3); White Blood Cell 5.6 10^3/uL (4.4-10.8)
[2022-10-12] MEDS: SODIUM BICARBONATE 650 MG TAB PO SCH ×2 (05:49→14:44)
[2022-10-12] MEDS: hydrALAZINE HCL 25 MG TAB PO SCH ×2 (05:50→14:44)
[2022-10-12 05:59] LABS: BUN/Creatinine Ratio 14.8; Calcium 8.2 mg/dL (8.5-10.1); Potassium 4.5 mmol/L (3.5-5.1)
[2022-10-12] MEDS: ACCU-CHEK COMFORT CURVE STRIP VI SCH ×2 (06:00→11:56)
[2022-10-12] MEDS: InsuLIN REG 1unit/0.01ml Soln (100units/ml) SC SCH ×2 (06:00→12:25)
[2022-10-12 06:02] LABS: Bilirubin, Total 0.5 mg/dL (0.2-1.0); Total Protein 6.7 g/dL (6.4-8.2)
[2022-10-12 08:05] VITALS: BP 157/73
[2022-10-12] MEDS: CALCIUM ACETATE 667 MG CAP PO SCH ×2 (08:09→11:56)
[2022-10-12 09:00] VITALS: BP 157/73
[2022-10-12] MEDS: NIFEdipine ER 30 MG TAB PO SCH (09:47)
[2022-10-12] MEDS: FUROSEMIDE 100 MG/10ML VIAL IV SCH (09:48)
[2022-10-12] MEDS: CLINDAMYCIN 600MG IV 50 ML IV SCH (09:48)
[2022-10-12] MEDS: LABETALOL HCL 200 MG TAB PO SCH (09:48)
[2022-10-12] MEDS: DAKINS HALF STR 0.25% (NaHypochlorite) 473 ML TOPICAL SOL TOP SCH (12:49)
[2022-10-12 12:59] VITALS: BP 155/58
[2022-10-12] MEDS ORDERED: METO25TA36 PO (13:35)
[2022-10-12] MEDS ORDERED: INSLANTI SC (13:35)
[2022-10-12] MEDS ORDERED: [UNRECOGNIZED DRUG - CODE] VI (13:35)
[2022-10-12] MEDS ORDERED: CALC667C5 PO (13:35)
[2022-10-12] MEDS ORDERED: HYDR25TA87 PO (13:35)
[2022-10-12] MEDS ORDERED: GLUC-7 VI (13:35)
[2022-10-12] MEDS ORDERED: NIFE1TAB31 PO (13:35)
[2022-10-12] MEDS ORDERED: FURO1TAB33 PO (13:35)
[2022-10-12] MEDS ORDERED: DAKI0.25 TOP (13:35)
[2022-10-12 15:14] VITALS: BP 140/78
== END 2022-10-12 17:20 | disposition home or self-care (01) | DRG 710 ==
LOC: ER 14:27 → EDBD 14:27 → OVERFLOW 09-24 01:39 → WEST WING 09-24 08:23 → TELE-WESTW 10-01 08:03
PROVIDERS: ADMIT Hospitalist; ATTEND Nurse Practitioner Acute Care
PROC: 30233N1 Transfusion of Nonautologous Red Blood Cells into Peripheral Vein, Percutaneous Approach (ICD-10-PCS; 2022-09-30)
PROC: 0Y6N0ZD Detachment at Left Foot, Partial 4th Ray, Open Approach (ICD-10-PCS; 2022-10-02)
PROC: 0Y6N0Z8 Detachment at Left Foot, Complete 5th Ray, Open Approach (ICD-10-PCS; principal; 2022-10-02 10:56)
PROC: 0JH63XZ Insertion of Tunneled Vascular Access Device into Chest Subcutaneous Tissue and Fascia, Percutaneous Approach (ICD-10-PCS; 2022-10-07)
PROC: 02H633Z Insertion of Infusion Device into Right Atrium, Percutaneous Approach (ICD-10-PCS; 2022-10-07)
PROC: B5181ZA Fluoroscopy of Superior Vena Cava using Low Osmolar Contrast, Guidance (ICD-10-PCS; 2022-10-07)
PROC: B548ZZA Ultrasonography of Superior Vena Cava, Guidance (ICD-10-PCS; 2022-10-07)
PROC: 5A1D70Z Performance of Urinary Filtration, Intermittent, Less than 6 Hours Per Day (ICD-10-PCS; 2022-10-07)
PROC: 5A1D70Z Performance of Urinary Filtration, Intermittent, Less than 6 Hours Per Day (ICD-10-PCS; 2022-10-09)
DX: A40.8 Other streptococcal sepsis (principal); N17.0 Acute kidney failure with tubular necrosis; I13.2 Hypertensive heart and chronic kidney disease with heart failure and with stage 5 chronic kidney disease, or end stage renal disease; E43 Unspecified severe protein-calorie malnutrition; M86.272 Subacute osteomyelitis, left ankle and foot; D63.1 Anemia in chronic kidney disease; E87.1 Hypo-osmolality and hyponatremia; L97.421 Non-pressure chronic ulcer of left heel and midfoot limited to breakdown of skin; L97.529 Non-pressure chronic ulcer of other part of left foot with unspecified severity; E11.621 Type 2 diabetes mellitus with foot ulcer; Z68.26 Body mass index [BMI] 26.0-26.9, adult; E11.22 Type 2 diabetes mellitus with diabetic chronic kidney disease; E11.51 Type 2 diabetes mellitus with diabetic peripheral angiopathy without gangrene; E11.65 Type 2 diabetes mellitus with hyperglycemia; E11.69 Type 2 diabetes mellitus with other specified complication; E55.9 Vitamin D deficiency, unspecified; N18.5 Chronic kidney disease, stage 5; I50.22 Chronic systolic (congestive) heart failure; Z79.899 Other long term (current) drug therapy
CPT/HCPCS: 36415; 36558; 71045; 73630; 73718; 76775; 76942; 77001; 80048; 80053; 80074; 80202; 81003; 82306; 82565; 82570; 82728; 82962; 83036; 83516; 83520; 83540; 83550; 83605; 83690; 83735; 83970; 84100; 84156; 84300; 85014; 85018; 85025; 85610; 85730; 86225; 86235; 86256; 86850; 86900; 86901; 86920; 87040; 87070; 87075; 87076; 87205; 87340; 87426; 90935; 96361; 96365; 97110; 97116; 97530; 99152; G0378; J1642; J1815; J2250; J2405; J2543; J2704; J3490; J7060; Q9967